=== PATIENT | male | born 1995 | race Caucasian/White ===

== ENCOUNTER 2021-06-13 17:55 | Emergency (ER) | payer OTHER ==
--- NOTE | 2021-06-13 18:09 | ED Physician Documentation ---
PD HPI NECK PAIN - Stated complaint Stated Complaint: NECK PX - Chief complaint Chief Complaint: Trauma Hd/Nk - History obtained from History obtained from: Patient - History of Present Illness Timing - onset: How many hours ago (10 28/2), Today Timing - duration: Hours (1 1/2) Timing - details: Abrupt onset, Still present Location: Mid, Lower Quality: Pain, Other (Pain in the mid to lower neck and upper thoracic area with pain radiating to the left biceps and shoulder.) Associated symptoms: No: Fever, Weakness, Numbness Improves with: Position (holding head and neck still) Worsened by: Movement Contributing factors: Trauma ([place] and tried to do a flip but landed headfirst with then a flexion of the neck. Abrupt onset of pain in the neck. He states he "saw stars" but no loss of consciousness confusion or difficulty speaking. Pain in neck without weakness nor numbness.) Similar symptoms before: Has not had sx before Review of Systems Constitutional: denies: Fever, Chills Eyes: denies: Decreased vision Nose: denies: Rhinorrhea / runny nose, Congestion Throat: denies: Sore throat Cardiac: denies: Chest pain / pressure Respiratory: denies: Cough GI: denies: Abdominal Pain Musculoskeletal: reports: Extremity pain (some pain left shoulder and biceps area, increased with flexion of upper arm.) Neurologic: reports: Head injury. denies: Focal weakness, Numbness, Confused, Altered mental status, LOC PD PAST MEDICAL HISTORY - Past Medical History Cardiovascular: None Respiratory: None Musculoskeletal: None - Present Medications Home Medications: Ambulatory Orders Medication Instructions Recorded Confirmed HYDROcod/ACETAM 5/325 [[place] 5/325] 1 ea PO Q6H PRN #10 tablet 06/13/21 Ibuprofen [Motrin] 600 mg PO TID PRN #25 tab 06/13/21 methocarbamoL [Robaxin] 500 mg PO Q6H PRN #15 tablet 06/13/21 - Allergies Allergies/Adverse Reactions: Allergies Allergy/AdvReac Type Severity Reaction Status Date / Time No Known Drug Allergies Allergy Verified 06/13/21 18:07 PD ED PE NORMAL - Vitals Vital signs reviewed: Yes - General General: Alert and oriented X 3, Well developed/nourished - Neck Neck: Supple, no meningeal sign, No adenopathy, Other (He is tender in the mid to lower cervical area without any obvious deformity. Cervical collar was placed by nursing in triage. It is kept it in place. He is conversant and appropriate. Mild tenderness on the top of the head.) - Cardiac Cardiac: RRR - Respiratory Respiratory: Clear bilaterally - Abdomen Abdomen: Soft, Non tender - Back Back: Other (There is some tenderness in the upper thoracic area at the level of the upper scapula. No tenderness in the lumbar area.) - Derm Derm: Normal color, Warm and dry - Extremities Extremities: Other (Some mild tenderness in the soft tissue anterior shoulder and biceps area but good flexion and extension of the elbow and he is able to reach out forward with the shoulders.) - Neuro Neuro: Alert and oriented X 3, No motor deficit, No sensory deficit (Symmetric sensation to touch and pinprick dermatome only in the upper extremities.), Normal speech Results - Vitals Vitals: Vital Signs - 24 hr 06/13/21 06/13/21 18:00 19:42 Temperature 37 C Heart Rate 73 75 Respiratory 16 14 Rate Blood Pressure 135/84 H 129/77 O2 Saturation 100 97 Oxygen O2 Source Room air PD MEDICAL DECISION MAKING - ED course Complexity details: reviewed results (no fractures nor misalignments. ), considered differential (Vertical load mechanism at a trampoline park as he laid on his head with neck flexion. Concern for head cervical and upper thoracic injury. Hopefully muscular and ligament. We will get CT scans.), d/w patient Departure - Departure Disposition: 01 Home, Self Care Clinical Impression: Cervical strain, acute Qualifiers: Encounter type: initial encounter Qualified Code(s): S16.1XXA - Strain of muscle, fascia and tendon at neck level, initial encounter Condition: Stable Instructions: ED Sprain Strain Neck Follow-Up: JANINA BARBOZA MD [Primary Care Provider] - Prescriptions: Ibuprofen [Motrin] 600 mg PO TID PRN #25 tab PRN Reason: Pain HYDROcod/ACETAM 5/325 [[place] 5/325] 1 ea PO Q6H PRN #10 tablet PRN Reason: Pain methocarbamoL [Robaxin] 500 mg PO Q6H PRN #15 tablet PRN Reason: Spasms Comments: Gentle stretching for the neck to reduce muscle stiffness and spasms. Use some anti-inflammatories such as ibuprofen 3 times a day with food for the next 4 to 7 days. I would anticipate being sore and stiff in the neck for several days and resolved by 4 to 5 days. Follow-up with your primary if not improved in that timeframe. Add Robaxin muscle relaxant if needed for stiffness and spasms. To this add Tylenol every 4 hours if needed for pain or hydrocodone if needed for worse pain. I would not anticipate needing stronger medication after 2 to 3 days. Light duty for the next several days to reduce muscle use of the neck and shoulders. Forms: Activity restrictions Discharge Date/Time: 06/13/21 19:49
[2021-06-13] MEDS ORDERED: KETOROLAC 30 MG/ML VIAL IM STA (18:16)
[2021-06-13] MEDS ORDERED: ACETAMINOPHEN 325 MG TABLET PO STA (18:16)
[2021-06-13] MEDS ORDERED: HYDROcod/ACETAM 5/325 MG TABLET PO STA (18:55)
--- NOTE | 2021-06-13 19:24 | CT Report ---
PROCEDURE: HEAD WO INDICATIONS: neck injury, landed on head off trampoline TECHNIQUE: Noncontrast 4.5 mm thick angled axial sections acquired from the foramen magnum to the vertex. For r adiation dose reduction, the following was used: automated exposure control, adjustment of mA and/or kV according to patient size. COMPARISON: None. FINDINGS: Image quality: Excellent. CSF spaces: Basal cisterns are patent. No extra-axial fluid collections. Ventricles are normal in size and shape. Brain: No midline shift. No intracranial masses or hemorrhage. Hoover-white matter interface is norm al. Skull and face: Calvarium and visualized facial bones are intact, without suspicious lesions. Sinuses: Visualized sinuses and mastoids are clear. IMPRESSION: No trauma found. Reviewed by: José Manuel Johnson MD on 06/13/2021 7:22 PM PDT Approved by: José Manuel Johnson MD on 06/13/2021 7:22 PM PDT Station ID: [id number]
--- NOTE | 2021-06-13 19:26 | CT Report ---
PROCEDURE: CERVICAL SPINE WO INDICATIONS: neck injury, landed on head off trampoline TECHNIQUE: Noncontrast 3 mm thick sections acquired from the skull base to the T4 level. Sagittal and coronal r eformats were then constructed. For radiation dose reduction, the following was used: automated exp osure control, adjustment of mA and/or kV according to patient size. COMPARISON: None. FINDINGS: Image quality: Excellent. Bones: No fractures or dislocations. Visualized superior ribs are intact. Reversal of the normal c ervical lordosis may be related to muscle spasm or positioning. Soft tissues: Prevertebral soft tissues are normal in thickness. No paravertebral hematomas. No ap ical pneumothoraces. Incidental surgical clips noted deep to the left sternocleidomastoid at the leve l of the hyoid bone IMPRESSION: Reversal of normal cervical lordosis without evidence of fracture or malalignment Reviewed by: Edinson Pinedo MD on 06/13/2021 6:24 PM AKDT Approved by: Edinson Pinedo MD on 06/13/2021 6:24 PM AKDT Station ID: [id number]
--- NOTE | 2021-06-13 19:28 | CT Report ---
PROCEDURE: THORACIC SPINE WO INDICATIONS: neck injury, landed on head off trampoline TECHNIQUE: Noncontrast 3 mm thick sections acquired through the region of interest in the thoracic spine. Sagit keyshawn and coronal reformats were then constructed. For radiation dose reduction, the following was used : automated exposure control, adjustment of mA and/or kV according to patient size. COMPARISON: None. FINDINGS: Image quality: Excellent. Bones: There is normal overall bony alignment. No acute vertebral body compression fractures. No s uspicious sclerotic or lytic bony lesions. Central spinal canal is of normal overall caliber. Soft tissues: No paravertebral masses or hematomas. Visualized posteromedial lungs appear clear. IMPRESSION: No trauma found. Reviewed by: José Manuel Johnson MD on 06/13/2021 7:27 PM PDT Approved by: José Manuel Johnson MD on 06/13/2021 7:27 PM PDT Station ID: [id number]
[2021-06-13 19:43] VITALS: BP 129/77
== END 2021-06-13 19:49 | disposition home or self-care (01) ==
LOC: ED 17:55
DX: S16.1XXA Strain of muscle, fascia and tendon at neck level, initial encounter (principal); X58.XXXA Exposure to other specified factors, initial encounter; Y93.44 Activity, trampolining; Y92.39 Other specified sports and athletic area as the place of occurrence of the external cause
CPT/HCPCS: 70450; 72125; 72128; 96372; 99284; A9270

== ENCOUNTER 2021-11-11 02:30 | Emergency (ER) | payer OTHER ==
[2021-11-11] MEDS ORDERED: diphenhydrAMINE 25 MG CAPSULE PO STA (03:03)
[2021-11-11] MEDS ORDERED: KETOROLAC 30 MG/ML VIAL IM STA (03:03)
[2021-11-11] MEDS ORDERED: METOCLOPRAMIDE 10 MG TABLET PO STA (03:04)
--- NOTE | 2021-11-11 03:07 | ED Physician Documentation ---
History of Present Illness - Stated complaint Stated Complaint: C+, STEWART - Chief complaint Chief Complaint: Neuro - History obtained from History obtained from: Patient - Additonal information Additional information: 26yM with recent dx of covid 2 days ago p/w sore throat, n/v nbnb and gradual onset severe throbbing constant frontal headache not improved with motrin/tylenol worsening over the course of the night. denies fever , cough, diarrhea abd pain. Review of Systems Ten Systems: 10 systems reviewed and negative Constitutional: reports: Myalgias, Fatigue. denies: Fever Throat: reports: Sore throat Respiratory: denies: Cough GI: reports: Nausea, Vomiting Neurologic: reports: Headache PD PAST MEDICAL HISTORY - Past Medical History Past Medical History: Yes Cardiovascular: None Respiratory: None Neuro: Headaches Musculoskeletal: None - Past Surgical History Past Surgical History: Yes - Present Medications Home Medications: Ambulatory Orders Medication Instructions Recorded Confirmed Metoclopramide [Reglan] 10 mg PO Q6H PRN #30 tablet 11/11/21 - Allergies Allergies/Adverse Reactions: Allergies Allergy/AdvReac Type Severity Reaction Status Date / Time No Known Drug Allergies Allergy Verified 11/11/21 02:49 - Social History Does the pt smoke?: No Smoking Status: Never smoker Does the pt drink ETOH?: No Does the pt have substance abuse?: No - Immunizations Immunizations are current?: Yes - POLST Patient has POLST: No PD ED PE NORMAL - Vitals Vital signs reviewed: Yes - General General: Alert and oriented X 3, No acute distress, Well developed/nourished - HEENT HEENT: Atraumatic, PERRL, EOMI, Moist mucous membranes, Pharynx benign - Neck Neck: Supple, no meningeal sign - Derm Derm: Normal color, Warm and dry - Extremities Extremities: No deformity - Neuro Neuro: Alert and oriented X 3, No motor deficit, No sensory deficit - Psych Psych: Normal mood, Normal affect Results - Vitals Vitals: Vital Signs - 24 hr 11/11/21 02:40 Temperature 37.3 C Heart Rate 79 Respiratory 18 Rate Blood Pressure 144/86 H O2 Saturation 97 Oxygen O2 Source Room air PD MEDICAL DECISION MAKING - ED course ED course: 26yM p/w migraine headache and covid-19, also with n/v station captain . antiemetic / migraine treatment provided. return precautions given. plan to f/u with pmd via telehealth. Departure - Departure Disposition: 01 Home, Self Care Clinical Impression: Headache, COVID-19, Nausea and vomiting Condition: Stable Instructions: Headaches Self Care, COVID-19 [facility], COVID-[address] [facility] Statement Prescriptions: Metoclopramide [Reglan] 10 mg PO Q6H PRN #30 tablet PRN Reason: Nausea / Vomiting Comments: You were seen in the ED for nausea, vomiting, covid-19 evaluation and migraine. Please fill the antinausea prescription and take as needed. Follow up with your PMD via telehealth. return to the ED for any new or worsening symptoms or other concerns.
[2021-11-11 03:43] VITALS: BP 106/60
== END 2021-11-11 03:43 | disposition home or self-care (01) ==
LOC: ED 02:30
DX: G43.909 Migraine, unspecified, not intractable, without status migrainosus (principal); U07.1 COVID-19; R11.2 Nausea with vomiting, unspecified
CPT/HCPCS: 96372; 99283; 99284; A9270

== ENCOUNTER 2022-01-09 15:22 | Outpatient (CLI) | payer OTHER ==
--- NOTE | 2022-01-09 15:38 | XRAY Report ---
PROCEDURE: Chest 2 View X-Ray INDICATIONS: Upper back pain TECHNIQUE: 2 view(s) of the chest. COMPARISON: None. FINDINGS: Surgical changes and devices: None. Lungs and pleura: No pleural effusions or pneumothorax. Lungs are clear. Mediastinum: Mediastinal contours are normal. Heart size is normal. Bones and chest wall: No suspicious bony abnormalities. Soft tissues appear unremarkable. IMPRESSION: No acute cardiopulmonary process demonstrated radiographically. Reviewed by: Luis Antonio Malin MD on 01/09/2022 3:37 PM PDT Approved by: Luis Antonio Malin MD on 01/09/2022 3:37 PM PDT Station ID: [id number]
--- NOTE | 2022-01-09 15:43 | XRAY Report ---
PROCEDURE: Thoracic Spine 2 View INDICATIONS: Upper back pain TECHNIQUE: 2 views of the thoracic spine were acquired. COMPARISON: None. FINDINGS: There is mild to moderate thoracic dextroscoliosis. No listhesis. Vertebral body heights maintained. No degenerative changes. No suspicious lytic or blastic osseous lesion. IMPRESSION: [id number] thoracic dextroscoliosis. Reviewed by: Luis Antonio Malin MD on 01/09/2022 3:41 PM PDT Approved by: Luis Antonio Malin MD on 01/09/2022 3:41 PM PDT Station ID: [id number]
== END 2022-01-09 23:59 | disposition home or self-care (01) ==
LOC: DI.N 15:22
PROVIDERS: ATTEND Family Medicine
DX: M54.6 Pain in thoracic spine (principal); M41.9 Scoliosis, unspecified